=== PATIENT | male | born 1955 | race Caucasian/White ===

== ENCOUNTER 2021-04-12 06:31 | Day surgery (SDC) | payer BC, MEDICARE ==
[~2021-04-12 06:31] MED LIST: Sodium Chloride 0.9% 1,000 ML IV SCH
[2021-04-12] MEDS ORDERED: fentaNYL 100 MCG/2 ML SDV ONE (07:23)
[2021-04-12] MEDS ORDERED: Propofol 200 MG/20 ML SDV ONE (07:23)
[2021-04-12] MEDS ORDERED: Midazolam 1 MG/ML 2 ML SDV ONE (07:23)
--- NOTE | 2021-04-12 14:28 | OR ---
DATE OF PROCEDURE: 04/12/2021 SURGEON: Lambert Tolbert MD PROCEDURE: Colonoscopy. FINDINGS: Ascending colon polyp, approximately 1 cm, completely removed using endoscopic mucosal resection technique. COMPLICATIONS: None. CAR WASH SUPERVISOR: None. ANESTHESIA: MAC. PREOPERATIVE DIAGNOSIS: Positive FIT test. POSTOPERATIVE DIAGNOSIS: Positive FIT test. RISKS: Risks, benefits, alternatives, and limitations including, but not limited to infection, bleeding, perforation, false positives, and false negatives were explained to the patient and he wished to proceed. PROCEDURE IN DETAIL: The patient was placed in left lateral decubitus position. Digital rectal exam was performed without abnormality. Scope was introduced and advanced atraumatically to the ileocecal valve. A photo was taken of this. At the junction of the cecum in the ascending colon, the aforementioned polyp was identified. This was resected using endoscopic mucosal resection technique including elevation using [place] [employer]k and subsequent resection using endoscopic mucosal resection technique standards. No abnormal bleeding was noted after this. Scope was brought back to the remainder of the colon and retroflexed. No old or new blood. No masses. No diverticulosis. No abnormalities on retroflexion. The patient tolerated the procedure well. Lambert Tolbert MD /[id number]
== END 2021-04-12 09:20 | disposition home or self-care (01) ==
LOC: JP.SDS 06:31
PROVIDERS: ATTEND Surgery
DX: D12.2 Benign neoplasm of ascending colon (principal); E78.5 Hyperlipidemia, unspecified; R73.03 Prediabetes
CPT/HCPCS: 45381; 45390; 88305; J2250; J2704; J3010; J7030